=== PATIENT | male | born 1955 | race Caucasian/White ===

== ENCOUNTER 2017-02-10 11:18 | Inpatient (IN) | payer SELFPAY ==
[2017-02-10] MEDS ORDERED: THERGRANM PO (13:37)
[2017-02-10 16:43] LABS: CK-MB 80.8 NG/ML
[2017-02-10 16:45] LABS: CKMB INDEX (NOT ORD) 10.5
[2017-02-10 16:46] LABS: TROPONIN I 15.8 NG/ML (<0.05)
[2017-02-10 23:02] LABS: CK-MB 59.7 NG/ML; CPK 779 U/L (0-200)
[2017-02-10 23:04] LABS: CKMB INDEX (NOT ORD) 7.7
[2017-02-10 23:49] LABS: BUN (BLOOD UREA NITROGEN) 7 MG/DL (6-23); CALCIUM, SERUM 9.5 MG/DL (8.5-10.4); CHLORIDE, SERUM 104 MMOL/L (96-112); CO2 (CARBON DIOXIDE) 25 MMOL/L (24-34); CREATININE 0.68 MG/DL (0.70-1.30); GFR AFRICAN AMERICAN 119 ML/MIN (>=60); GFR NON AFRICAN AMERICAN 103 ML/MIN (>=60); GLUCOSE, SERUM 101 MG/DL (60-99); POTASSIUM, SERUM 3.9 MMOL/L (3.5-5.3); SODIUM, SERUM 138 MMOL/L (135-148)
[2017-02-11 07:16] LABS: BASOPHILS 0.5 %; BASOPHILS ABSOLUTE 0.04 10/3/uL (0.0-0.16); EOSINOPHILS 0.6 %; EOSINOPHILS ABSOLUTE 0.05 10/3/uL (0.0-0.53); HEMATOCRIT 43.3 % (40.0-51.0); HEMOGLOBIN 15.1 g/dL (13.6-17.8); IMMATURE GRANULOCYTES 0.3 %; IMMATURE GRANULOCYTES ABSOLUTE 0.02 10/3/uL (0.0-0.11); LYMPHOCYTES 21.6 %; LYMPHOCYTES ABSOLUTE 1.71 10/3/uL (0.67-4.30); MEAN CORPUS HGB CONC 34.9 g/dL (32.0-36.0); MEAN CORPUSCULAR HEMOGLOB 32.4 pg (26.0-34.0); MEAN CORPUSCULAR VOLUME 92.9 fL (80-100); MEAN PLATELET VOLUME 8.8 fL (9.2-13.0); MONOCYTES 10.4 %; MONOCYTES ABSOLUTE 0.82 10/3/uL (0.21-1.20); NEUTROPHILS 66.6 %; NEUTROPHILS ABSOLUTE 5.26 10/3/uL (2.02-8.40); PLATELET COUNT 224 10/3/uL (150-400); RBC DISTRIBUTION WIDTH 13.2 % (12.0-16.0); RED CELL COUNT 4.66 10/6/uL (4.7-6.1); WHITE BLOOD CELLS 7.9 10/3/uL (4.5-10.5)
[2017-02-11 07:18] LABS: MANUAL DIFF NO %
[2017-02-11 07:38] LABS: BUN (BLOOD UREA NITROGEN) 9 MG/DL (6-23); CHLORIDE, SERUM 105 MMOL/L (96-112); CHOLESTEROL 223 MG/DL (< 200); CK-MB 33.4 NG/ML; CO2 (CARBON DIOXIDE) 26 MMOL/L (24-34); CPK 626 U/L (0-200); CREATININE 0.75 MG/DL (0.70-1.30); GFR AFRICAN AMERICAN 115 ML/MIN (>=60); GFR NON AFRICAN AMERICAN 99 ML/MIN (>=60); GLUCOSE, SERUM 117 MG/DL (60-99); HDL CHOLESTEROL 75 MG/DL (> 39); LDL CHOLESTEROL 118 MG/DL (< 130); NON-HDL CHOLESTEROL 148 MG/DL (< 160); POTASSIUM, SERUM 4.1 MMOL/L (3.5-5.3); SODIUM, SERUM 134 MMOL/L (135-148); TRIGLYCERIDE 150 MG/DL (< 150)
[2017-02-11 07:40] LABS: CKMB INDEX (NOT ORD) 5.3
[2017-02-11] MEDS ORDERED: ASAB PO (15:06)
[2017-02-11] MEDS ORDERED: LIPITOR40 (15:07)
[2017-02-11] MEDS ORDERED: COREG3 PO (15:08)
[2017-02-11] MEDS ORDERED: PRIN5 PO (15:08)
[2017-02-11] MEDS ORDERED: EFFIENT10 PO (15:09)
[2017-02-11] MEDS ORDERED: CHANTIX1 PO (15:11)
== END 2017-02-11 15:50 | disposition home or self-care (01) | DRG 247 ==
LOC: SSU2 11:18 → CCU 14:54
PROVIDERS: Internal Medicine Cardiovascular Disease
PROC: 027034Z Dilation of Coronary Artery, One Artery with Drug-eluting Intraluminal Device, Percutaneous Approach (ICD-10-PCS; principal; 2017-02-10)
PROC: 4A023N7 Measurement of Cardiac Sampling and Pressure, Left Heart, Percutaneous Approach (ICD-10-PCS; 2017-02-10)
PROC: B2151ZZ Fluoroscopy of Left Heart using Low Osmolar Contrast (ICD-10-PCS; 2017-02-10)
PROC: B2111ZZ Fluoroscopy of Multiple Coronary Arteries using Low Osmolar Contrast (ICD-10-PCS; 2017-02-10)
DX: I21.19 ST elevation (STEMI) myocardial infarction involving other coronary artery of inferior wall (principal); I10 Essential (primary) hypertension; I25.10 Atherosclerotic heart disease of native coronary artery without angina pectoris; I44.7 Left bundle-branch block, unspecified; E11.9 Type 2 diabetes mellitus without complications; J44.9 Chronic obstructive pulmonary disease, unspecified; Z87.891 Personal history of nicotine dependence
CPT/HCPCS: 71010; 80048; 80061; 82550; 82553; 83735; 84484; 85025; 85347; 87641; 93005; 93458; 96374; 99152; 99153; 99285; A9270-GY; C1725; C1769; C1874; C1887; C1894; C9606; J0360; J0583; J2250; J3010; Q9967